=== PATIENT | male | born 1970 | race Caucasian/White ===

== ENCOUNTER 2018-06-15 08:29 | Day surgery (SDC) | payer BC ==
[2018-06-08 15:10] VITALS: BMI 29.5
[~2018-06-15 08:29] MED LIST: DEXAMETHASONE SOD PHOSPHATE 10 MG/ML 1 ML VIAL IV ONE; HYDROmorphone 0.5 MG/0.5 ML SYRINGE IVP PRN; LACTATED RINGERS 1,000 ML IV SCH; LIDOCAINE 1% 20 ML VIAL (10MG/ML) FOR IV START INTRADERMA PRN; ONDANSETRON 4 MG/2 ML VIAL IVP PRN; Pre Op ABX Message 1 EACH MISC MISCELLANE ONE; SCOPOLAMINE 1.5MG/72HR PATCH TRANSDERM ONE
[2018-06-15] MEDS ORDERED: ceFAZolin IN SWFI 2 GM/20 ML SYRINGE IVP STA (08:54)
--- NOTE | 2018-06-15 08:54 | P.GSHP ---
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 He presents today for surgical excision. PAST MEDICAL HISTORY: Please see list. PAST SURGICAL HISTORY: Please see list. MEDICATIONS: Please see list. ALLERGIES: Please see list. SOCIAL HISTORY: No illicit drug use FAMILY HISTORY: No reports of Crohn disease or ulcerative colitis. REVIEW OF ORGAN SYSTEMS: CONSTITUTIONAL: No reports of fevers or chills. GI: Denies any blood in stools or constipation. PHYSICAL EXAM: VITAL SIGNS: Stable Musculoskeletal: Approximately 3 cm lipomas along the mid back 2, 1 cm lipoma lower back. SKIN: Lesion identified along bilateral thighs. GENERAL: Well developed and in no acute distress. Pleasant. HEENT: No sclera icterus. Extraocular movements grossly intact. Moist buccal mucosa. Head is atraumatic, normocephalic. Hears conversational speech. No nasal drainage. NECK: Supple without lymphadenopathy. No JV distention. CHEST: Non-labored respirations and equal bilateral excursions. CARDIOVASCULAR: Regular rate and rhythm. Palpable 2+ radial pulses. ABDOMEN: Soft. Non-tender. Nondistended. NEUROLOGIC: No focal or lateralizing signs. PSYCH: Appropriate affect. Alert and oriented to person, place and time. ASSESSMENT: 1. Lipomas along the back x 3 PLAN: 1. Will proceed of excision of subcutaneous tumor along the back. 2. DVT prophylaxis. 3. Antibiotic prophylaxis. 4. Time of recovery, at least one week. Past Medical History Past Medical History: No Reported History History of Any Multi-Drug Resistant Organisms: None Reported Additional Past Surgical History / Comment(s): CYST REMOVED FROM BACK Past Anesthesia/Blood Transfusion Reactions: No Reported Reaction Smoking Status: Current every day smoker - Past Family History Mother Family Medical History: No Reported History Medications and Allergies Home Medications Medication Instructions Recorded Confirmed Type No Known Home Medications 06/08/18 06/08/18 History Allergies Allergy/AdvReac Type Severity Reaction Status Date / Time No Known Allergies Allergy Verified 06/08/18 15:06
[2018-06-15 08:55] VITALS: TEMP 97.9
[2018-06-15] MEDS ORDERED: PROPOFOL 10 MG/ML 20 ML VIAL IV ONE (09:24)
[2018-06-15] MEDS ORDERED: MIDAZOLAM 2 MG/2 ML VIAL ONE (09:24)
[2018-06-15] MEDS ORDERED: ePHEDrine SULFATE/0.9% NACL/PF 50 MG/5 ML SYRINGE IV ONE (09:24)
[2018-06-15] MEDS ORDERED: LIDOCAINE 1% INJ 10MG/ML (20 ML MDV) ONE (09:24)
[2018-06-15] MEDS ORDERED: SUCCINYLCHOLINE CHLORIDE 100 MG/5 ML SYR IV ONE (09:24)
[2018-06-15] MEDS ORDERED: BUPIVACAIN-EPI 0.25%-1:200,000 30 ML VIAL SQ ONE (09:52)
[2018-06-15] MEDS ORDERED: LACTATED RINGERS 1,000 ML IV ONE (10:05)
--- NOTE | 2018-06-15 11:04 | P.OP ---
Date of Procedure: 06/15/18 Anesthesia: local Description of Procedure: SURGEON: DORINDA MO MD TAILER OFF: None. PREOPERATIVE DIAGNOSES: 1. Intramuscular lipoma left lower back, 4 cm 2. Intramuscular lipoma right upper back shoulder blade, 3 cm POSTOPERATIVE DIAGNOSES: 1. Intramuscular lipoma left lower back, 4 cm 2. Intramuscular lipoma right upper back shoulder blade, 3 cm PROCEDURES PERFORMED: 1. Excision of intramuscular lipoma left lower back, 4 cm 2. Excision of intramuscular lipoma right upper back, 3 cm 3. Complex closure of 5 cm incision along left lower back 4. Complex closure of 4 cm incision along right upper back ANESTHESIA: GETA with local ESTIMATED BLOOD LOSS: 5 mL. SPECIMENS REMOVED: 1. Intramuscular lipoma left lower back, 4 cm 2. Intramuscular lipoma right upper back shoulder blade, 3 cm COMPLICATIONS: None. INDICATIONS: The patient is a 48-year-old male with right upper back and left lower back lipoma. Now he presents for surgical intervention. Benefits and risks of surgical intervention were described including bleeding, infection. Informed consent was obtained. DESCRIPTION OR PROCEDURE: Patient was brought into the operating room, laid in prone position. After general, the back was prepped and draped in a standard sterile fashion with ChloraPrep. Timeout protocol was confirmed with the surgical team regarding the patient's name, procedure to be performed including preoperative medications. DVT prophylaxis was confirmed. A field block was placed of the right upper back. Indelible marker was placed around the tumor 4 x 4 cm. An incision using #15 blade was made along the marking into the dermis and subcutaneous tissue. Electro-Bovie cautery was used to excise the lesion deep to the fascia and intramuscular in a transverse elliptical fashion. Undermining was performed along for closure. 0 Vicryl for the deep subcutaneous tissue followed by 3-0 Vicryl was placed in interrupted fashion. 4-0 Monocryl in a running subcuticular fashion was placed along the dermis. A field block was placed of the left lower back. Indelible marker was placed around the tumor 3 x 3 cm. An incision using #15 blade was made along the marking into the dermis and subcutaneous tissue. Electro-Bovie cautery was used to excise the lesion deep to the fascia and intramuscular in a transverse elliptical fashion. Undermining was performed along for closure. 0 Vicryl for the deep subcutaneous tissue followed by 3-0 Vicryl was placed in interrupted fashion. 4-0 Monocryl in a running subcuticular fashion was placed along the dermis. The skin was cleansed and Exofin tape with liquid was applied for a four layer closure. The incision was covered with Optifoam dressing. Local anesthetic was placed. At the end of the procedure, needle, sponge, and instrument count was verified correct by psychiatric technician assistant. The patient was awoken and taken to the second stage postanesthesia care unit. The patient tolerated the procedure well. FINDINGS: 1. Deep subcutaneous intramuscular tumor extended to the subfascial, left lower back, 4 cm 2. Deep subcutaneous intramuscular tumor extended to the subfascial, right upper back shoulder blade, 3 cm Plan - Discharge Summary New Discharge Prescriptions: New Ibuprofen [Motrin] 600 mg PO Q8HR PRN #30 tab PRN Reason: Pain Discharge Medication List Ibuprofen [Motrin] 600 mg PO Q8HR PRN #30 tab 06/15/18 [Rx] Follow up Appointment(s)/Referral(s): Dorinda Mo MD [STAFF PHYSICIAN] - 07/03/18 11:40 am Patient Instructions/Handouts: *Surgery [facility] - (Anesthesia) Discharge Instructions Outpatient Surgery, Skin Adhesive Care (DC) Activity/Diet/Wound Care/Special Instructions: No lifting over 4 pounds in 1 weeks. May shower. No bath tub soak. Remove external foam dressing 06/20/2018. Leave tape on the skin to be removed by surgeon Discharge Disposition: HOME SELF-CARE
--- NOTE | 2018-06-15 11:08 | P.PN ---
Progress Note - Text Progress Note Date: 06/15/18 To Whom It May Concern: Surjit Luis is under my medical care. No lifting overhead or lifting over 4 pounds in 1 week. Will be off work 06/15/2018 to 06/24/18. He may return to work 06/25/2018 with 20 pound weight lifting restriction ending 07/16/18. Regards, Dorinda Mo
[2018-06-15 11:18] VITALS: RESP 16
[2018-06-15 11:32] VITALS: BP 117/68; PULSE 66
== END 2018-06-15 11:47 | disposition home or self-care (01) ==
LOC: OR 08:29
PROVIDERS: ATTEND Surgery Plastic and Reconstructive Surgery
DX: D17.9 Benign lipomatous neoplasm, unspecified (principal); Z87.891 Personal history of nicotine dependence
CPT/HCPCS: 88304; 21932 ×2; 13101; J2250; J1100; J2405; J2001; J0330; J2704; J0690

== ENCOUNTER 2021-02-22 08:54 | Day surgery (SDC) | payer BC ==
[2021-02-17 13:04] VITALS: BMI 29.5
[~2021-02-22 08:54] MED LIST changes: -DEXAMETHASONE SOD PHOSPHATE 10 MG/ML 1 ML VIAL IV ONE; -HYDROmorphone 0.5 MG/0.5 ML SYRINGE IVP PRN; -LIDOCAINE 1% 20 ML VIAL (10MG/ML) FOR IV START INTRADERMA PRN; -ONDANSETRON 4 MG/2 ML VIAL IVP PRN; -Pre Op ABX Message 1 EACH MISC MISCELLANE ONE; -SCOPOLAMINE 1.5MG/72HR PATCH TRANSDERM ONE
[2021-02-22 09:22] VITALS: RESP 16; TEMP 97.6
[2021-02-22] MEDS ORDERED: LACTATED RINGERS 1,000 ML IV ONE (09:28)
[2021-02-22] MEDS ORDERED: LIDOCAINE 1% (10MG/ML) FOR IV START INTRADERMA ONE (09:28)
[2021-02-22] MEDS ORDERED: PROPOFOL 10 MG/ML 20 ML VIAL IV ONE (10:01)
--- NOTE | 2021-02-22 10:26 | P.PCN ---
Date of Procedure: 02/22/21 Description of Procedure: BRIEF HISTORY: Patient is a 50-year-old male presenting for outpatient colonoscopy for screening for malignant neoplasm of the colon. No prior colonoscopies. He does report a family history of colon cancer in his father. No change in bowel habits reported. PROCEDURE PERFORMED: Colonoscopy with polypectomy. PREOPERATIVE DIAGNOSIS: Screening for malignant neoplasm of the colon, no prior colonoscopy, family history of colon cancer in his father. ESTIMATED BLOOD LOSS: Minimal. IV sedation per Anesthesia. PROCEDURE: After informed consent was obtained, the patient, was brought into the endoscopy unit. IV sedation was administered by Anesthesia under continuous monitoring. Digital rectal examination was normal. Initially the Olympus CF-190 flexible video colonoscope was then inserted in the rectum, gradually advanced into the cecum without any difficulty. Careful examination was performed as the scope was gradually being withdrawn. Ileocecal valve and the appendiceal orifice were visualized and appeared normal. Prep was excellent. Mucosa of the cecum, ascending colon, transverse colon, descending colon, sigmoid colon, and rectum appeared normal. 2 diminutive polyps measuring 1-2 mm in size removed from the transverse colon and splenic flexure with cold forcep polypectomy. Sessile 4 mm descending colon polyp removed with cold snare polypectomy. Retroflexion was performed in the rectum and no lesions were seen, with moderate internal hemorrhoids noted. The patient tolerated the procedure well. IMPRESSION: Sessile descending colon polyp removed with cold snare polypectomy. 2 diminutive polyps removed with cold forcep polypectomy from the transverse colon and splenic flexure. Internal hemorrhoids. RECOMMENDATIONS: Findings of this examination were discussed with the patient and his family. Okay to resume diet. Okay to resume medications. Await pathology from polypectomies. Recommend repeat colonoscopy in 5 years for family history of colon cancer and personal history of colon polyps.
[2021-02-22 10:56] VITALS: PULSE 54
[2021-02-22 11:09] VITALS: BP 108/54
== END 2021-02-22 11:10 | disposition home or self-care (01) ==
LOC: ORWHC2ENDO 08:54
PROVIDERS: ATTEND Internal Medicine
DX: Z12.11 Encounter for screening for malignant neoplasm of colon (principal); K64.8 Other hemorrhoids; D12.4 Benign neoplasm of descending colon; D12.3 Benign neoplasm of transverse colon; J45.909 Unspecified asthma, uncomplicated
CPT/HCPCS: 45380; 88305; 45385; J2704